=== PATIENT | female | born 1940 | race Caucasian/White ===

== ENCOUNTER 2023-11-23 08:10 | Emergency (ER) | payer OTHER ==
[~2023-11-23] VITALS: Ht 160 cm; Wt 53.1 kg
[2023-11-23] MEDS: SODIUM CHLORIDE 0.9% 500 ML IVB ONE (09:15)
[2023-11-23] MEDS: IOHEXOL 350 MG/ML 100ML IJ ONE (09:15)
[2023-11-23 09:19] LABS: Basophils # (auto) 0 10 ^3/uL (0-0.2); Basophils % (auto) 0.9 % (0.0-2.0); Eosinophils # (auto) 0.1 10 ^3/uL (0-0.8); Eosinophils % (auto) 1.5 % (0.0-7.0); Hematocrit 41.9 % (36.0-46.0); Hemoglobin 13.7 g/dL (12.2-16.2); Lymphocytes # (auto) 1.4 10 ^3/uL (0.4-5.4); Lymphocytes % (auto) 28.5 % (10.0-50.0); Mean Corpuscular Hemoglobin 29.8 pg (28.0-32.0); Mean Corpuscular Hgb Conc. 32.6 g/dL (32.0-36.0); Mean Corpuscular Volume 91.5 fL (80.0-100.0); Monocytes # (auto) 0.4 10 ^3/uL (0-1.3); Monocytes % (auto) 7.7 % (0.0-12.0); Neutrophils % (auto) 61.4 % (37.0-80.0); Nucleated Red Blood Cells % 0.1 %; Red Blood Cells 4.58 10^6/uL (4.0-5.20); Red Cell Distribution Width 13.5 % (11.8-14.3); White Blood Cell 4.9 10^3/uL (4.4-10.8)
[2023-11-23 09:25] LABS: Alanine Aminotransferase 17 U/L (7-40); Albumin 4.4 g/dL (3.2-4.8); Alkaline Phosphatase 106 U/L (46-116); Anion Gap 8 (5-15); Aspartate Aminotransferase 20 U/L (13-40); BUN/Creatinine Ratio 18.1 (10.0-20.0); Blood Urea Nitrogen 17 mg/dL (9-23); Calcium 10.5 mg/dL (8.7-10.4); Carbon Dioxide 24 mmol/L (20-30); Chloride 107 mmol/L (98-107); Glucose 121 mg/dL (74-106); Magnesium 1.9 mg/dL (1.6-2.6); Potassium 3.5 mmol/L (3.5-5.1); Sodium 139 mmol/L (136-145)
[2023-11-23 09:26] LABS: Bilirubin, Total 0.5 mg/dL (0.2-1.0); Total Protein 7.3 g/dL (5.7-8.2)
[2023-11-23 09:32] LABS: Partial Thromboplastin Time 28.3 SEC (24.5-34.5); Prothrombin Time 10.5 sec (9.3-11.8)
[2023-11-23 10:01] LABS: Urine Bacteria MOD /hpf (None Seen); Urine Blood TRACE /uL (Negative); Urine Clarity Clear (Clear); Urine Color Colorless (Yellow); Urine Protein, UAD Negative (Negative); Urine Specific Gravity 1.005 (1.001-1.035); Urine Urobilinogen Normal (Negative); Urine WBC 59 /hpf (0 - 5)
[2023-11-23] MEDS: SODIUM CHLORIDE 0.9% 1,000 ML IV ONE (10:27)
[2023-11-23 10:39] VITALS: PULSE 76; RESP 17; O2SAT 96
[2023-11-23] MEDS: cefTRIAXone 1GM/50ML D5W 50 ML IV ONE (11:31)
[2023-11-23] MEDS: ASPirin-EC 81 mg tab PO ONE (13:10)
[2023-11-23 15:43] VITALS: BP 133/73; PULSE 77; RESP 15; TEMP 98; O2SAT 97
== END 2023-11-23 17:07 | disposition short-term general hospital (02) ==
LOC: ER 08:10
DX: G45.9 Transient cerebral ischemic attack, unspecified (principal); N39.0 Urinary tract infection, site not specified; I63.9 Cerebral infarction, unspecified; R53.1 Weakness; E78.5 Hyperlipidemia, unspecified; I10 Essential (primary) hypertension
CPT/HCPCS: 36415; 70450; 70551; 71045; 80053; 81001; 82962; 83735; 84484; 85025; 85610; 85730; 93005; 96361; 96365; 99285; J0696; J7030; J7040

== ENCOUNTER 2024-09-05 18:12 | Emergency (ER) | payer OTHER ==
[~2024-09-05] VITALS: Ht 160 cm; Wt 52.0 kg
--- NOTE | 2024-09-05 19:18 | ED.PDOC ---
Musculoskeletal HPI Comments 84-year-old female came to ER to right upper extremity pain. Patient had a PICC line inserted last Saturday for IV antibiotics (Ertapenem) for recurrent UTI. Patient able to tolerate IV antibiotics given every morning for the past 5 days. However few hours ago (after meds), patient has started complaining of right upper extremity pain, and noted that her right wrist appeared swollen. Patient denies any recent trauma to the aforementioned extremity. Chief Complaint: Upper extremity Time Seen by MD: 19:17 Reviewed Notes: Nurses Notes Allergies: Coded Allergies: Penicillins (Verified Allergy, Unknown, 11/23/23) Uncoded Allergies: SHRIMP (Allergy, Severe, 11/23/23) Home Meds Active Scripts Naproxen (Naproxen) 375 Mg Tab, 1 TAB PO BID for 5 Days, #10 TAB 5 Refills Take with food Prov:EMERY VOSS MD 09/05/24 Information Source: Patient, Relative Mode of Arrival: EMS Location: Right Extremity Location: Arm Timing: Hours Prehospital treatment: None Severity: Moderate Able to Move Extremity: Yes Bear Weight: Limited Pain: Moderate Hand Dominance: Right Mechanism: Spontaneous Circumstances: Spontaneous Onset of Symptoms: Spontaneous Symptoms: Pain Associated signs and symptoms: Arm pain (right) Review of Systems: REVIEW OF SYSTEMS: No fever, no chills, or fatigue HEENT: No sore throat, no earache, no congestion, no neck pain. Cardiac: No chest pain. No palpitations. Lungs: No shortness of breath, no cough. GI: No nausea, no vomiting, no diarrhea, no constipation, no abdominal pain : No dysuria, frequency, or urgency. No hematuria. Musculoskeletal: No joint pain , no joint swelling, (+) right upper extremity pain Skin: No rash, no itching. Neuro: No headache, no dizziness, no weakness Vital Signs Vital Signs Date Time Temp Pulse Resp B/P (MAP) Pulse Ox O2 Delivery O2 Flow Rate FiO2 09/05/24 19:21 98.1 89 20 139/83 (101) 97 Physical Exam General: Awake, alert and oriented. No acute distress. Skin: Skin in warm, dry and intact without rashes or lesions. HEENT: The head is normocephalic and atraumatic. Conjunctivae are clear without exudates or hemorrhage. Sclera is non-icteric. Neck: Normal range of motion. No JVD. Cardiac: Regular rate Respiratory: No signs of respiratory distress. No Stridor. Extremities: Right upper extremity, minimal swelling, tenderness, erythema. Right wrist, decreased range of motion, swelling over the radial process, radial pulse intact, normal capillary refill, strength and sensation. Neurological: The patient is awake, alert and oriented to person, place, and t gurvinder with normal speech. Speech is clear. There is no facial asymmetry. Psychiatric: Appropriate mood and affect. Good judgement and insight. No visual or auditory hallucinations. No suicidal or homicidal ideation. 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 Was a procedure done?: No Differential Diagnosis EXT Differential Diagnosis: Cellulitis, Deep Vein Thrombosis, Compartment Syndrome Other Differential Diagnosis PICC line infection, malfunctioning PICC line, superficial thrombophlebitis X-Ray, Labs, Meds, VS Vital Signs Date Time Temp Pulse Resp B/P (MAP) Pulse Ox O2 Delivery O2 Flow Rate FiO2 09/05/24 19:21 98.1 89 20 139/83 (101) 97 Lab Test 09/05/24 19:30 09/05/24 19:20 Range/Units White Blood Count 7.0 4.4-10.8 10^3/uL Red Blood Count 4.27 4.0-5.20 10^6/uL Hemoglobin 12.9 12.2-16.2 g/dL Hematocrit 39.5 36.0-46.0 % Mean Corpuscular Volume 92.6 80.0-100.0 fL Mean Corpuscular Hemoglobin 30.2 28.0-32.0 pg Mean Corpuscular Hemoglobin Concent 32.7 32.0-36.0 g/dL Red Cell Distribution Width 13.9 11.8-14.3 % Platelet Count 223 140-450 10^3/uL Mean Platelet Volume 6.9 6.9-10.8 fL Neutrophils (%) (Auto) 59.1 37.0-80.0 % Lymphocytes (%) (Auto) 27.6 10.0-50.0 % Monocytes (%) (Auto) 10.8 0.0-12.0 % Eosinophils (%) (Auto) 1.7 0.0-7.0 % Basophils (%) (Auto) 0.8 0.0-2.0 % Neutrophils # (Auto) 4.2 1.6-8.6 10 ^3/uL Lymphocytes # (Auto) 1.9 0.4-5.4 10 ^3/uL Monocytes # (Auto) 0.8 0-1.3 10 ^3/uL Eosinophils # (Auto) 0.1 0-0.8 10 ^3/uL Basophils # (Auto) 0.1 0-0.2 10 ^3/uL Nucleated Red Blood Cells 0.1 % Sodium Level 140 136-145 mmol/L Potassium Level 3.7 3.5-5.1 mmol/L Chloride Level 106 98-107 mmol/L Carbon Dioxide Level 26 20-31 mmol/L Anion Gap 8 5-15 Blood Urea Nitrogen 13 9-23 mg/dL Creatinine 0.96 0.550-1.02 mg/dL Glomerular Filtration Rate Calc 58 >90 mL/min BUN/Creatinine Ratio 13.5 10.0-20.0 Serum Glucose 112 H 74-106 mg/dL Calcium Level 11.0 H 8.7-10.4 mg/dL Total Bilirubin 0.3 0.2-1.0 mg/dL Aspartate Amino Transferase (AST) 16 13-40 U/L Alanine Aminotransferase (ALT) 11 7-40 U/L Alkaline Phosphatase 101 46-116 U/L C-Reactive Protein High Sensitivity 1.13 H <1.0 mg/dL Total Protein 7.0 5.7-8.2 g/dL Albumin 4.2 3.2-4.8 g/dL Lactic Acid Level 1.1 0.4-2.0 mmol/L RIGHT Upper Extremity Venous Duplex Findings: The internal jugular vein demonstrates appropriate compressibility and waveform variability. The subclavian vein is patent on color Doppler evaluation without intraluminal thrombus and demonstrates waveform variability. The visualized portion of the brachiocephalic vein is patent on color Doppler evaluation without intraluminal thrombus and demonstrates waveform variability. The axillary vein demonstrates appropriate compressibility and waveform variability. The brachial veins demonstrate appropriate compressibility and patency on Doppler evaluation. The basilic vein demonstrates appropriate compressibility and patency on Doppler evaluation. The cephalic vein demonstrates noncompressibility at the wrist at this time. Impression: 1. No venous thrombus identified in the RIGHT upper extremity vessels evaluated above. 2. Noncompressible cephalic vein on the right at the wrist consistent with superficial thrombus. PROCEDURE(s): RWRI - R WRIST 3+ VIEW XRAY Findings/ IMPRESSION: No obvious fracture or dislocation. Degenerative changes of the radiocarpal joint, 1st CMC joint, and scaphotrapezoid joint. No radiopaque foreign objects. Time of 1ST Reevaluation: 19:12 Reevaluation 1ST: Unchanged Patient Education/Counseling: Diagnosis, Treatment Family Education/Counseling: Diagnosis, Treatment Departure 1 Departure Time of Disposition: 20:56 Impression: Primary Impression: Pain and swelling of right wrist Additional Impression: Superficial thrombophlebitis Disposition: 01 HOME / SELF CARE / HOMELESS Condition: Stable Additional Instructions: ED DISCHARGE INSTRUCTIONS Instructions: Please read all instructions provided in this packet carefully. Sounds showed no DVT, it showed a superficial vein thrombophlebitis in the right wrist. Return to the emergency department if the arm or wrist becomes red, more swollen, painful. Although you have been discharged from the Emergency Department, this does not mean that you have a "clean bill of health". []No definitive diagnosis for your symptoms has been made today. It is possible that you are in the process of developing a serious illness. This is why you must return to the ED without fail if any new or worsening symptoms (especially if your symptoms include chest pain, trouble breathing, abdominal pain, fever, headache, confusion, trouble seeing, or trouble walking) It is also very important that you see a primary care doctor within the next 2-3 days to follow up. If you are unable to get an appointment, return to the ED for re-evaluation. What is superficial vein phlebitis/thrombosis? These are medical terms for problems with veins called the "superficial" veins. The superficial veins are closer to the surface of the skin than the "deep" veins. They are found throughout the body. Problems can include: ?Superficial vein phl?bitis This is when the veins get inflamed. ?Superficial vein thrombosis This is when blood clots form in the veins. If both problems happen, it is called "superficial vein thr?mb??hl?biti?." Superficial vein ?hl?bitis/thrombosis is related to another vein problem called "deep vein thrombosis" ("DV?"). DV? is when 1 of the deep veins gets inflamed and has blood clots. These veins are found deeper under the skin. They are beneath the fatty tissues and between, or within, the muscle tissues. DV? can be very dangerous because clots within a deep vein can break off and tr stephanie to the lungs, causing something called a "pulmonary embolism." But DV? is different from superficial vein phlebiti?/thrombosis, which affects veins closer to the surface of the skin. Is superficial vein phlebitis/thrombosis dangerous? Superficial vein phl?biti? is not usually dangerous. But superficial vein thrombosis can lead to problems. Clots in a superficial vein can: ?Extend into a deep vein, causing DV? ?Break off, causing pulmonary embolism For these reasons, superficial vein thrombosis is taken very seriously. The risk of problems is higher when it affects the places where superficial and deep veins meet, like in the upper thigh, back of the knee, or upper arm. How does superficial vein phlebitis/thrombosis relate to other vein problems? People who get superficial vein phl?biti?/thrombosis often also have a type of vein disease called "venous insufficiency." Venous insufficiency is a problem with blood flow in the veins. It most often affects the legs. When the veins are healthy and working normally, they carry blood in only 1 direction, from the arms and legs back to the heart. Veins have valves inside them to keep blood moving toward the heart. The valves open to let blood flow to the heart, and close to keep blood from flowing backward. With venous insufficiency, the valves are damaged or do not work well. Because of this, blood flows backward and collects in the veins. Some people also have varicose veins (twisted, swollen veins). People without venous insufficiency can also get superficial vein ?hl?biti?/thrombosis. This usually happens after having an "intravenous catheter," which is a tube that goes into a vein to give medicines. But even people who had nothing put into a vein can get superficial vein phlebitis/thrombosis. For example, it can happen to people with blood clotting problems or cancer. What are the symptoms of superficial vein phlebitis/thrombosis? The symptoms include: ?Pain, tenderness, or redness along the length of a vein ?Thickening of the vein ?Fever ?Pus draining from the area where a catheter was put in ?Swelling of the affected arm or leg Should I see a doctor or nurse? Yes, if you have symptoms of superficial vein ?hlebitis/thrombosis, see your doctor or nurse. See them right away if the affected arm or leg is swollen, or if the affected vein is in the thigh, behind the knee, or in or upper arm. Call for an ambulance (in the [place] and [place], call ) if you get symptoms of a blood clot in the lungs, such as: ?Panting or trouble breathing ?Sharp, knife-like chest pain when you breathe in ?Coughing, or coughing up blood ?Rapid heartbeat Will I need tests? Maybe. Your doctor or nurse might be able to tell what is happening by doing an exam and learning about your symptoms. They might also do a test called an ultrasound. An ultrasound can: ?Show if any of the veins are blocked, especially the deep veins ?Show if the blockage is recent or older ?Check how well the valves in the veins work In some cases, your doctor might order blood tests. How is superficial vein phlebitis/thrombosis treated? Treatment is aimed at easing your symptoms. To do this, doctors recommend that you: ?Use heating or cooling pads on the area. ?Raise the arm or leg You can prop it up on pillows or a chair when resting. ?Take a medicine called an NSAID Examples include ibuprofen (sample brand names: Advil, Motrin) and naproxen (sample brand names: Aleve, Naprosyn). If your superficial vein phlebiti?/thrombosis is near where you have (or had) an intravenous catheter, your doctor will check for infection. If you do have an infection, you might need antibiotics. If superficial vein ?hl?biti?/thrombosis is in your leg, your doctor or nurse might also suggest that you wear compression stockings. These are special socks that fit tightly over the ankle and leg. If your doctor or nurse recommends them, they will tell you which type to wear and how to put them on. Some people do not need any other treatment. In some cases where superficial vein thrombosis is near the deep veins, doctors will prescribe an anti-clotting medicine. These medicines are sometimes called "blood thinners." They help prevent more clots from forming. Can superficial vein phlebitis/thrombosis be prevented? You can reduce your chances of getting these problems in the leg veins by staying active and not sitting too long without moving. If your doctor needs to use a catheter to give you medicine through a vein in your arm, this can sometimes lead to superficial vein ?hlebitis/thrombosis. Your doctor can lower this risk by removing the catheter as soon as it is no longer needed. e-Prescriptions Naproxen (Naproxen) 375 Mg Tab 1 TAB PO BID for 5 Days, #10 TAB 5 Refills Take with food Prov: EMERY VOSS MD 09/05/24 Discharged With: Relative (Daughter) Comments 84-year-old female who presented with right wrist swelling, currently has PICC line in right upper arm. No sign of infection around the PICC line, PICC line is flushing well, no DVT, no fracture of the right wrist. Patient is not febrile, there was no leukocytosis. Blood culture pending. Advised supportive treatment compression, anti-inflammatory for a wrist and advised return precautions with the sign of infection. Extensive evaluation was performed in attempt to identify or rule out: (See differential diagnosis section) The following tests were ordered, and results were reviewed by me: (See diagnostic results section) I reviewed and agreed with the following test results read by other providers: Right wrist x-ray I reviewed the following notes from the pt's past medical encounters: November 2023 for CVA Additional information was gathered from interviewing the following independent historians: Patient's daughter at bedside Discussion of management or test interpretation with external physician/other qualified health health care legal assistant: N/A Addressed one or more chronic illnesses with severe exacerbation, progression, or side effects of treatment: Indwelling PICC line for treatment of recurrent UTIs. Decision regarding hospitalization or escalation of hospital level of care: Risks and benefits of admission for further treatment of patient's condition was considered however due to patient's stable condition patient will be discharged to follow up closely or return to care for worsening of condition or inability to follow up. Critical Care Note Critical Care Time?: No Stability Stability form required: No Heart Score Heart Score: Heart Score Response (Comments) Value History N/A 0 EKG N/A 0 Age N/A 0 Risk Factors N/A 0 Troponin N/A 0 Total 0 I personally scribed for EMERY VOSS MD ([email or web address]) on 09/05/24 at 19:18. Electronically submitted by Tesfaye Gaona ([facility]). I personally scribed for EMERY VOSS MD ([email or web address]) on 09/05/24 at 19:25. Electronically submitted by Tesfaye Gaona ([email or web address]). I personally scribed for EMERY VOSS MD ([email or web address]) on 09/05/24 at 20:33. Electronically submitted by Tesfaye Gaona ([facility]). EMERY VOSS MD Sep 05, 2024 19:18
[2024-09-05 19:40] LABS: Basophils # (auto) 0.1 10 ^3/uL (0-0.2); Basophils % (auto) 0.8 % (0.0-2.0); Eosinophils # (auto) 0.1 10 ^3/uL (0-0.8); Eosinophils % (auto) 1.7 % (0.0-7.0); Hematocrit 39.5 % (36.0-46.0); Hemoglobin 12.9 g/dL (12.2-16.2); Lymphocytes # (auto) 1.9 10 ^3/uL (0.4-5.4); Lymphocytes % (auto) 27.6 % (10.0-50.0); Mean Corpuscular Hemoglobin 30.2 pg (28.0-32.0); Mean Corpuscular Hgb Conc. 32.7 g/dL (32.0-36.0); Mean Corpuscular Volume 92.6 fL (80.0-100.0); Monocytes # (auto) 0.8 10 ^3/uL (0-1.3); Monocytes % (auto) 10.8 % (0.0-12.0); Neutrophils # (auto) 4.2 10 ^3/uL (1.6-8.6); Neutrophils % (auto) 59.1 % (37.0-80.0); Nucleated Red Blood Cells % 0.1 %; Platelet Count (auto) 223 10^3/uL (140-450); Red Blood Cells 4.27 10^6/uL (4.0-5.20); Red Cell Distribution Width 13.9 % (11.8-14.3)
[2024-09-05 20:01] LABS: Alanine Aminotransferase 11 U/L (7-40); Albumin 4.2 g/dL (3.2-4.8); Alkaline Phosphatase 101 U/L (46-116); Anion Gap 8 (5-15); Aspartate Aminotransferase 16 U/L (13-40); BUN/Creatinine Ratio 13.5 (10.0-20.0); Blood Urea Nitrogen 13 mg/dL (9-23); Carbon Dioxide 26 mmol/L (20-31); Chloride 106 mmol/L (98-107); Potassium 3.7 mmol/L (3.5-5.1); Sodium 140 mmol/L (136-145)
--- NOTE | 2024-09-05 20:01 | DVH ---
INDICATION: right wrist swelling TECHNIQUE: 4 radiographic views of the right wrist were obtained. COMPARISON: None Findings/ IMPRESSION: No obvious fracture or dislocation. Degenerative changes of the radiocarpal joint, 1st CM C joint, and scaphotrapezoid joint. No radiopaque foreign objects.
[2024-09-05 20:02] LABS: Bilirubin, Total 0.3 mg/dL (0.2-1.0)
[2024-09-05 20:05] LABS: Glucose 112 mg/dL (74-106)
[2024-09-05 20:12] LABS: CRP High Sensitivity 1.13 mg/dL (<1.0)
--- NOTE | 2024-09-05 20:15 | DVH ---
RIGHT Upper Extremity Venous Duplex Clinical History: r/o dvt Comparison: None Technique: Duplex Doppler evaluation of the venous system of the RIGHT lower neck and upper extremity including color Doppler and spectral/pulsed waveform analysis was performed. Findings: The internal jugular vein demonstrates appropriate compressibility and waveform variability. The subclavian vein is patent on color Doppler evaluation without intraluminal thrombus and demonstra ping waveform variability. The visualized portion of the brachiocephalic vein is patent on color Doppler evaluation without intr aluminal thrombus and demonstrates waveform variability. The axillary vein demonstrates appropriate compressibility and waveform variability. The brachial veins demonstrate appropriate compressibility and patency on Doppler evaluation. The basilic vein demonstrates appropriate compressibility and patency on Doppler evaluation. The cephalic vein demonstrates noncompressibility at the wrist at this time. Impression: 1. No venous thrombus identified in the RIGHT upper extremity vessels evaluated above. 2. Noncompressible cephalic vein on the right at the wrist consistent with superficial thrombus. 3. If clinical concern/symptoms persist or worsen, short-interval follow-up study is suggested.
[2024-09-05] MEDS ORDERED: NAPR-957 PO (20:58)
[2024-09-05 22:38] VITALS: BP 136/75; PULSE 85; RESP 18; TEMP 98.4; O2SAT 96
== END 2024-09-05 22:42 | disposition home or self-care (01) ==
LOC: ER 18:12
DX: I80.8 Phlebitis and thrombophlebitis of other sites (principal); M18.11 Unilateral primary osteoarthritis of first carpometacarpal joint, right hand; I10 Essential (primary) hypertension; Z87.440 Personal history of urinary (tract) infections; Z45.2 Encounter for adjustment and management of vascular access device; Z88.0 Allergy status to penicillin
CPT/HCPCS: 36415; 73110; 80053; 83605; 85025; 86141; 87040; 93971

== ENCOUNTER 2024-10-30 15:16 | Emergency (ER) | payer OTHER ==
[~2024-10-30] VITALS: Ht 154.9 cm; Wt 52.7 kg
[~2024-10-30 15:16] MED LIST: NAPR-957 PO
--- NOTE | 2024-10-30 15:42 | ED.PDOC ---
General HPI Comments 84 year old female brought in by granddaughter presents to the ED with chief complaint of flank pain. Granddaughter reports that the patient had a UA performed on Saturday and they received a call today from the urology PA, advising the patient to take a prescription of Macrobid for a mild UTI that was noted. Granddaughter states that the patient is pending surgery on Saturday for a bladder stone removal. Granddaughter relays that the patient has been experiencing nausea, vomiting, chills, and tremors since starting the Macrobid today. Patient denies any diarrhea, dysuria, hematuria, dizziness, fever, or chest pain. Time Seen by MD: 15:37 Reviewed notes: Nurses Notes, Medications, Allergies Allergies: Coded Allergies: Penicillins (Verified Allergy, Unknown, 11/23/23) Uncoded Allergies: SHRIMP (Allergy, Severe, 11/23/23) Home Meds Active Scripts Naproxen (Naproxen) 375 Mg Tab, 1 TAB PO BID for 5 Days, #10 TAB 5 Refills Take with food Prov:EMERY VOSS MD 09/05/24 Information Source: Patient, Relative (GrandChild) Mode of Arrival: Wheelchair Severity: Moderate Inability to void: None Timing: Hours, Days Duration: Since onset Prehospital treatment: None Onset: Spontaneous Symptoms: None History of: UTI, Kidney stone Location: (L)Flank associated signs and symptoms: Nausea, Vomiting, Flank Pain Past Medical History PAST MEDICAL HISTORY: COPD, CVA, High Lipids, HTN, Kidney Stones, UTI'S Surgical History: Appendectomy, Hysterectomy Surgical History (Other): Bladder Sling, Cataract Surgery, Bilateral breast cyst removal. FINISHER OPERATOR History: Denies all FINISHER OPERATOR Hx Family History Family History: Reviewed,noncontributory to illness, Family hx of Cancer Social History Smoker: Non-Smoker Alcohol: Denies ETOH Use Drugs: Denies Drug Use Lives In: Home Constitutional: reports: chills; denies: diaphoresis, fatigue, fever, malaise, sweats, weakness, others EENTM: denies: blurred vision, double vision, ear bleeding, ear discharge, ear drainage, ear pain, ear ringing, eye pain, eye redness, hearing loss, mouth pain, mouth swelling, nasal discharge, nose bleeding, nose congestion, nose pain, photophobia, tearing, throat pain, throat swelling, voice changes, others Respiratory: denies: cough, hemoptysis, orthopnea, SOB at rest, shortness of breath, SOB with excertion, stridor, wheezing, others Cardiovascular: denies: chest pain, dizzy spells, diaphoresis, Dyspnea on exertion, edema, irregular heart beat, left arm pain, lightheadedness, palpitations, PND, syncope, others Gastrointestinal: reports: nausea, vomiting; denies: abdomen distended, abdominal pain, blood streaked bowels, constipated, diarrhea, dysphagia, difficulty swallowing, hematemesis, melena, poor appetite, poor fluid intake, rectal bleeding, rectal pain, others Genitourinary: reports: flank pain; denies: abnormal vagina bleeding, burning, dyspareunia, dysuria, frequency, hematuria, incontinence, pain, , vagina discharge, urgency, others Neurological: reports: tremors; denies: dizziness, fainting, headache, left sided numbness, left sided weakness, numbness, paresthesia, pre-existing deficit, right sided numbness, right sided weakness, seizure, speech problems, tingling, weakness, others Musculoskeletal: denies: back pain, gout, joint pain, joint swelling, muscle pain, muscle stiffness, neck pain, others Integumetry: denies: bruises, change in color, change in hair/nails, dryness, laceration, lesions, lumps, rash, wounds, others Allergic/Immunocompromised: denies: Difficulty Healing, Frequent Infections, Hives, Itching, others Hematologic/Lymphatic: denies: anemia, blood clots, easy bleeding, easy bruising, swollen glands, others Endocrine: denies: excessive hunger, excessive sweating, excessive thirst, excessive urination, flushing, intolerance to cold, intolerance to heat, unexplained weight gain, unexplained weight loss, others Psychiatric: denies: anxiety, bipolar disorder, depression, hopeless, panic disorder, schizophrenia, sleepless, suicidal, others All Other Systems: Reviewed and Negative Physical Exam General Appearance: Moderate Distress HEENT: Normal ENT Inspection, Pharynx Normal, TMs Normal Neck: Full Range of Motion, Non-Tender, Normal, Normal Inspection Respiratory: Chest Non-Tender, Lungs Clear, No Accessory Muscle Use, No Respiratory Distress, Normal Breath Sounds Cardiovascular: No Edema, No JVD, No Murmur, No Gallop, Tachycardia Breast Exam: Deferred Gastrointestinal: No Organomegaly, Non Tender, No Pulsatile Mass, Normal Bowel Sounds, Soft Genitalia: Deferred Pelvic: Deferred Rectal: Deferred Extremities: No calf tenderness, Normal capillary refill, Non-tender, No pedal edema Musculoskeletal : Location: Left Extremity Location: Back Apperance: Normal, Tenderness: Moderate Neurologic: Alert, antisubmarine weapons officer II-XII nml as Tested, Motor Weakness, Normal Affect, Normal Mood, No Sensory Deficits Cerebellar Function: Normal Reflexes: Normal Skin: Dry, Pallor, Warm Lymphatic: No Adenopathy Was a procedure done? Was a procedure done?: No EKG EKG : Pulse Rate (adult): 112 [place]: Normal Cardiac Rhythm: ST Block: None ST: Nonsp Differential Diagnosis Kidney stone (Female): Ectopic , Hepatitis, Strain, Urolithiasis X-Ray, Labs, Meds, VS Vital Signs Date Time Temp Pulse Resp B/P (MAP) Pulse Ox O2 Delivery O2 Flow Rate FiO2 10/30/24 16:05 112 10/30/24 16:02 98.4 122 22 93/58 (70) 94 10/30/24 15:44 112 Lab Test 10/30/24 18:15 10/30/24 17:35 10/30/24 16:10 Range/Units Lactic Acid Level 1.6 2.4 *H 0.4-2.0 mmol/L Urine Color Light-orange Yellow Urine Clarity Turbid H Clear Urine pH 5.5 5.0-9.0 Urine Specific [place] 1.011 1.001-1.035 Urine Protein 1+ H Negative Urine Ketones 1+ H Negative Urine Blood 2+ H Negative /uL Urine Nitrite Negative Negative Urine Bilirubin Negative Negative Urine Urobilinogen Normal Negative mg/dL Urine Leukocyte Esterase 3+ Negative /uL Urine RBC 13 0 - 4 /hpf Urine WBC Clumps Present None Seen /hpf Urine Microscopic WBC 459 H 0-5 /HPF Urine Squamous Epithelial Cells Few <5 /hpf Urine Bacteria Few H None Seen /hpf Urine Glucose Normal Normal mg/dL White Blood Count 7.5 4.4-10.8 10^3/uL Red Blood Count 4.27 4.0-5.20 10^6/uL Hemoglobin 13.0 12.2-16.2 g/dL Hematocrit 37.8 36.0-46.0 % Mean Corpuscular Volume 88.4 80.0-100.0 fL Mean Corpuscular Hemoglobin 30.4 28.0-32.0 pg Mean Corpuscular Hemoglobin Concent 34.4 32.0-36.0 g/dL Red Cell Distribution Width 14.6 H 11.8-14.3 % Platelet Count 166 140-450 10^3/uL Mean Platelet Volume 7.5 6.9-10.8 fL Neutrophils (%) (Auto) 92.2 H 37.0-80.0 % Lymphocytes (%) (Auto) 6.3 L 10.0-50.0 % Monocytes (%) (Auto) 1.2 0.0-12.0 % Eosinophils (%) (Auto) 0.1 0.0-7.0 % Basophils (%) (Auto) 0.2 0.0-2.0 % Neutrophils # (Auto) 6.9 1.6-8.6 10 ^3/uL Lymphocytes # (Auto) 0.5 0.4-5.4 10 ^3/uL Monocytes # (Auto) 0.1 0-1.3 10 ^3/uL Eosinophils # (Auto) 0 0-0.8 10 ^3/uL Basophils # (Auto) 0 0-0.2 10 ^3/uL Nucleated Red Blood Cells 0.0 % Sodium Level 137 136-145 mmol/L Potassium Level 4.0 3.5-5.1 mmol/L Chloride Level 105 98-107 mmol/L Carbon Dioxide Level 20 20-31 mmol/L Anion Gap 12 5-15 Blood Urea Nitrogen 21 9-23 mg/dL Creatinine 1.01 0.550-1.02 mg/dL Glomerular Filtration Rate Calc 55 >90 mL/min BUN/Creatinine Ratio 20.8 H 10.0-20.0 Serum Glucose 107 H 74-106 mg/dL Calcium Level 10.6 H 8.7-10.4 mg/dL Total Bilirubin 0.6 0.2-1.0 mg/dL Aspartate Amino Transferase (AST) 32 13-40 U/L Alanine Aminotransferase (ALT) 23 7-40 U/L Alkaline Phosphatase 106 46-116 U/L Total Protein 6.7 5.7-8.2 g/dL Albumin 4.4 3.2-4.8 g/dL Current Medications Medications (Trade) Dose Ordered Sig/Trang Route Start Time Stop Time Status Last Admin Sodium Chloride 500 ml @ 500 mls/hr Q1H ONCE IV 10/30/24 15:45 10/30/24 16:44 DC 10/30/24 16:14 IV Hep-Lock was established The patient was being given normal saline at a 500 cc bolus We are repeating a L bolus of normal saline The patient's lactic acid level came back at 2.4 The rest of the lactic acid was repeated and it was 1.9 The CBC and chemistry panel are within normal limits The patient's urine test is positive for a significant UTI We are concerned about an obstructive pyelonephritis so we are going to get a CT scan of the abdomen and pelvis The patient was being admitted at this time We did contact [facility] and received authorization for admission The patient was last blood pressure was around 80/46 so we did give the patient normal saline and treated as sepsis. The patient was started on vancomycin IV piggyback The patient was also started on Rocephin IV piggyback The patient was being admitted at this time Time of 1ST Reevaluation: 16:05 Reevaluation 1ST: Unchanged Patient Education/Counseling: Diagnosis, Treatment, Prognosis Family Education/Counseling: Diagnosis, Treatment, Prognosis Additional Information - I reviewed the following notes from patient's past medical encounters: 09/05/24 for Pain and Swelling Rt Wrist. - The following tests were ordered, and results were reviewed by me: (Labs, X- Ray, EKG): - Additional information was gathered from interviewing the following independent Historian: (Family, Other Providers, EMT): Granddaughter - I reviewed and agreed with the following test results read by other provider: (X-ray, CT, US): - I discussed treatments and results with medical personnel and family. Departure 1 Departure Time of Disposition: 20:37 Impression: Primary Impression: Sepsis Qualified Codes: A41.9 - Sepsis, unspecified organism Additional Impressions: UTI (urinary tract infection) Qualified Codes: N30.01 - Acute cystitis with hematuria Kidney stones Disposition: ADMITTED INPATIENT Admit to: Tele Condition: Fair Critical Care Note Critical Care Time?: Yes (45 min-critical care time only) Stability Stability form required: Yes Unstable for transfer: Telemetry monitoring (Telemetry monitoring required), ED Physician Assesment (Clinical assesment) Heart Score Heart Score: Heart Score Response (Comments) Value History N/A 0 EKG N/A 0 Age N/A 0 Risk Factors N/A 0 Troponin N/A 0 Total 0 I personally scribed for CA FERRIS MD ([email or web address]) on 10/30/24 at 15:42. Electronically submitted by Slick Sesay ([email or web address]). I personally scribed for CA FERRIS MD ([email or web address]) on 10/30/24 at 15:44. Electronically submitted by Slick Sesay ([email or web address]). CA FERRIS MD Oct 30, 2024 15:42
[2024-10-30] MEDS: SODIUM CHLORIDE 0.9% 500 ML IV ONE (16:14)
[2024-10-30 16:44] LABS: Basophils # (auto) 0 10 ^3/uL (0-0.2); Basophils % (auto) 0.2 % (0.0-2.0); Eosinophils # (auto) 0 10 ^3/uL (0-0.8); Eosinophils % (auto) 0.1 % (0.0-7.0); Hematocrit 37.8 % (36.0-46.0); Lymphocytes # (auto) 0.5 10 ^3/uL (0.4-5.4); Lymphocytes % (auto) 6.3 % (10.0-50.0); Mean Corpuscular Hemoglobin 30.4 pg (28.0-32.0); Mean Corpuscular Hgb Conc. 34.4 g/dL (32.0-36.0); Mean Corpuscular Volume 88.4 fL (80.0-100.0); Monocytes # (auto) 0.1 10 ^3/uL (0-1.3); Monocytes % (auto) 1.2 % (0.0-12.0); Neutrophils # (auto) 6.9 10 ^3/uL (1.6-8.6); Neutrophils % (auto) 92.2 % (37.0-80.0); Platelet Count (auto) 166 10^3/uL (140-450); Red Blood Cells 4.27 10^6/uL (4.0-5.20); Red Cell Distribution Width 14.6 % (11.8-14.3); White Blood Cell 7.5 10^3/uL (4.4-10.8)
[2024-10-30 16:55] LABS: Alanine Aminotransferase 23 U/L (7-40); Albumin 4.4 g/dL (3.2-4.8); Alkaline Phosphatase 106 U/L (46-116); Anion Gap 12 (5-15); Aspartate Aminotransferase 32 U/L (13-40); BUN/Creatinine Ratio 20.8 (10.0-20.0); Blood Urea Nitrogen 21 mg/dL (9-23); Carbon Dioxide 20 mmol/L (20-31); Chloride 105 mmol/L (98-107); Sodium 137 mmol/L (136-145)
[2024-10-30 16:56] LABS: Bilirubin, Total 0.6 mg/dL (0.2-1.0); Calcium 10.6 mg/dL (8.7-10.4); Glucose 107 mg/dL (74-106); Total Protein 6.7 g/dL (5.7-8.2)
[2024-10-30 17:00] LABS: Lactic Acid w/Reflex 2.4 mmol/L (0.4-2.0)
[2024-10-30 18:16] LABS: Urine Bacteria FEW /hpf (None Seen); Urine Blood 2+ /uL (Negative); Urine Clarity Turbid (Clear); Urine Color Light-Orange (Yellow); Urine Protein, UAD 1+ (Negative); Urine Specific Gravity 1.011 (1.001-1.035); Urine Squamous Epithelial Cell FEW /hpf (<5); Urine Urobilinogen Normal (Negative); Urine WBC 459 /HPF (0-5); Urine WBC Clumps PRESENT /hpf (None Seen); Urine pH 5.5 (5.0-9.0)
[2024-10-30 20:29] VITALS: RESP 18; O2SAT 97
[2024-10-30 20:35] VITALS: PULSE 86; RESP 18; O2SAT 98
[2024-10-30] MEDS: cefTRIAXone 1GM/50ML D5W 50 ML IV ONE (20:39)
[2024-10-30] MEDS: SODIUM CHLORIDE 0.9% 1,000 ML IVB ONE (21:00)
[2024-10-30] MEDS: SODIUM CHLORIDE 0.9% 1,000 ML IV ONE (21:00)
[2024-10-30] MEDS: VANCOMYCIN 1GM/250ML KIT 250 ML IV ONE (21:11)
[2024-10-30 23:00] VITALS: BP 109/61; PULSE 100; RESP 18; TEMP 98.6; O2SAT 96
--- NOTE | 2024-11-01 07:18 | ECG ---
[facility] Test Date: 2024-10-30 Test Time: 15:44:25 Pat Name: RAUL WILEY Department: ER Room: Gender: F Lobbyist: MARKO : 1940 Requested By: CA FERRIS Order Number: [id number] Reading MD: George Silva Measurements Intervals [place] Rate: 112 P: 7 [place]: 135 QRS: 16 QRSD: 87 T: -5 QT: 271 QTc: 370 Interpretive Statements Sinus tachycardia Abnormal inferior Q waves Borderline abnrm T, anterolateral leads .. Electronically Signed On 11-01-2024 14:43:58 PST by George Silva Please click the below link to view image of tracing.
== END 2024-10-31 00:25 | disposition left against medical advice (07) ==
LOC: ER 15:16
DX: A41.9 Sepsis, unspecified organism (principal); N39.0 Urinary tract infection, site not specified; Z88.8 Allergy status to other drugs, medicaments and biological substances; Z88.0 Allergy status to penicillin; J44.9 Chronic obstructive pulmonary disease, unspecified; E78.5 Hyperlipidemia, unspecified; Z90.49 Acquired absence of other specified parts of digestive tract; Z90.710 Acquired absence of both cervix and uterus; Z98.890 Other specified postprocedural states
CPT/HCPCS: 36415; 80053; 81001; 83605; 85025; 87040; 93005; 96361; 96365; 96368; 99291; J0696; J3370; J7040; 96366; 96367